=== PATIENT | female | born 1980 | race Caucasian/White ===

== ENCOUNTER 2017-02-24 16:17 | Emergency (ER) | payer MEDICAID, OTHER ==
[2017-02-24 16:25] VITALS: BP 129/72
[2017-02-24 18:00] LABS: Hematocrit 39 % (35-47); Hemoglobin 12.9 g/dl (12.0-16.0); Mean Corpuscular HGB Conc 33 g/dl (31-36); Mean Corpuscular Hemoglobin 31 pg (27-31); Mean Corpuscular Volume 92 fL (80-97); Mean Platelet Volume 7 um3 (7.4-10.4); Red Blood Count 4.17 10^6/ul (4.0-5.4); Red Cell Distribution Width 14 % (10.5-15); White Blood Count 9.9 10^3/ul (3.5-10.8)
[2017-02-24 18:15] LABS: Albumin 3.6 g/dL (3.2-5.2); BUN/Creatinine Ratio 24.1 (8-20); C Reactive Protein 20.79 mg/L (< 5.00); Calcium 9.1 mg/dL (8.6-10.3); EGFR African American 151.3 (>60); EGFR Non-African American 117.6 (>60); Globulin 3.5 g/dL (2-4); Potassium 3.3 mmol/L (3.5-5.0); Total Bilirubin 0.3 mg/dL (0.2-1.0); Total Protein 7.1 g/dL (6.4-8.9)
[2017-02-24 19:08] LABS: Erythrocyte Sed Rate 65 mm/Hr (0-14)
[2017-02-24] MEDS ORDERED: Ketorolac INJ* 30 MG/ML 1 ML VIAL IV ONE (19:53)
[2017-02-24] MEDS ORDERED: Ketorolac INJ* 30 MG/ML 1 ML VIAL ONE (19:54)
--- NOTE | 2017-02-24 21:58 | ED ---
Joe Rios Salem, scribed for Krishan Lehman MD on 02/24/17 at 1745 . Upper Extremity Pain - HPI Summary HPI Summary: Patient is 36 y/o female who presents to the ED with numbness and pain in her right hand since 1 week ago. She states her hand feels cold and like electricity is going through it. She reports edema in the RLE and difficulty walking on it. She also reports calf and ankle pain in the RLE. She denies neck pain and states that pain is not worse in the morning. Pt states that her whole right arm felt numb a few days ago, but that its only her hand now. She had an X-ray and US of her arm and leg taken 2 days ago. - History of Current Complaint Chief Complaint: EDExtremityLower Stated Complaint: RIGHT LEG SWELLING,ARM&HAND NUMBNESS Time Seen by Provider: 02/24/17 16:56 Hx Obtained From: Patient Hx Last Menstrual Period: DEPO Mechanism Of Injury: Unknown Onset/Duration: Started Days Ago, Still Present Timing: Constant Severity Initially: Moderate Severity Currently: Moderate Pain Location: Hand - Right. 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 Positive: Edema - RLE and RUE. , Other - Numbness and pain of right hand. Cold hand with sensation of "electricity." Calf and ankle pain in the RLE. All Other Systems Reviewed And Are Negative: Yes Physical Exam Triage Information Reviewed: Yes Vital Signs On Initial Exam: Initial Vitals Temp Pulse Resp BP Pulse Ox 99.1 F 102 16 129/72 100 02/24/17 16:20 02/24/17 16:20 02/24/17 16:20 02/24/17 16:20 02/24/17 16:20 Vital Signs Reviewed: Yes Appearance: Positive: Well-Appearing, Pain Distress Skin: Positive: Warm, Skin Color Reflects Adequate Perfusion, Dry Head/Face: Positive: Normal Head/Face Inspection Eyes: Positive: Normal Neck: Positive: Supple, Nontender Respiratory/Lung Sounds: Positive: Clear to Auscultation, Breath Sounds Present Cardiovascular: Positive: RRR, Other - Good capillary refill and good pulses. Abdomen Description: Positive: Nontender, Soft Bowel Sounds: Positive: Present Musculoskeletal: Positive: Other - Seems to be weak in hands, radial ulnar nerve distribution. Negative Tinels sign and Phalen's sign. Neurological: Positive: Normal Psychiatric: Positive: Normal, Affect/Mood Appropriate - Kincaid Coma Scale Coma Scale Total: 15 Diagnostics - Vital Signs Vital Signs Temp Pulse Resp BP Pulse Ox 02/24/17 16:20 99.1 F 102 16 129/72 100 - Laboratory Lab Results: Lab Results 02/24/17 02/24/17 Range/Units 17:50 17:50 WBC 9.9 (3.5-10.8) 10^3/ul RBC 4.17 (4.0-5.4) 10^6/ul Hgb 12.9 (12.0-16.0) g/dl Hct 39 (35-47) % MCV 92 (80-97) fL MCH 31 (27-31) pg MCHC 33 (31-36) g/dl RDW 14 (10.5-15) % Plt Count 401 (150-450) 10^3/ul MPV 7 L (7.4-10.4) um3 Neut % (Auto) 70.1 (38-83) % Lymph % (Auto) 19.9 L (25-47) % Saline % (Auto) 8.0 (1-9) % Eos % (Auto) 1.3 (0-6) % Baso % (Auto) 0.7 (0-2) % Absolute Neuts (auto) 7.0 (1.5-7.7) 10^3/ul Absolute Lymphs (auto) 2.0 (1.0-4.8) 10^3/ul Absolute Monos (auto) 0.8 (0-0.8) 10^3/ul Absolute Eos (auto) 0.1 (0-0.6) 10^3/ul Absolute Basos (auto) 0.1 (0-0.2) 10^3/ul Absolute Nucleated RBC 0 10^3/ul Nucleated RBC % 0 ESR 65 H (0-14) mm/Hr Sodium 139 (133-145) mmol/L Potassium 3.3 L (3.5-5.0) mmol/L Chloride 106 (101-111) mmol/L Carbon Dioxide 24 (22-32) mmol/L Anion Gap 9 (2-11) mmol/L BUN 14 (6-24) mg/dL Creatinine 0.58 (0.51-0.95) mg/dL Est GFR ( Amer) 151.3 (>60) Est GFR (Non-Af Amer) 117.6 (>60) BUN/Creatinine Ratio 24.1 H (8-20) Glucose 84 (70-100) mg/dL Calcium 9.1 (8.6-10.3) mg/dL Total Bilirubin 0.30 (0.2-1.0) mg/dL AST 17 (13-39) U/L ALT 19 (7-52) U/L Alkaline Phosphatase 55 (34-104) U/L C-Reactive Protein 20.79 H (< 5.00) mg/L Total Protein 7.1 (6.4-8.9) g/dL Albumin 3.6 (3.2-5.2) g/dL Globulin 3.5 (2-4) g/dL Albumin/Globulin Ratio 1.0 (1-3) Result Diagrams: 02/24/17 17:50 02/24/17 17:50 Lab Statement: Any lab studies that have been ordered have been reviewed, and results considered in the medical decision making process. Re-Evaluation - Re-Evaluation First Eval Re-Evaluation Time: 19:41 Comment: Informed pt of plan. Course/Dx - Course Course Of Treatment: Ms. Whittaker's right hand and posterior right thigh have been hurting her for a couple weeks gradually worsening. She has been to [facility] twice and they didd U/S of her arm and leg to R/U DVT, plain films to R/U bony injury and labs with unknown result at this time. She was prescribed Vicodin but hasn't filled the script and hasn't purchased any OTC pain meds either. Her exam is inconsistent but clearly something is going on. Her inflammatory markers are elevated and I have sent an RAVINDER and Tick PCR's and will prescribe an anti-inflammatory which may be easier for her to get with her Medicaid. Dr. Miller has agreed to follow her and likely get an MRI. - Diagnoses Provider Diagnoses: Hand pain - Physician Notifications Discussed Care Of Patient With: Dr. Miller (neurology) @ 1934. Will give pt referral to Dr. Miller. Discharge - Discharge Plan Condition: Stable Disposition: HOME Prescriptions: Naproxen TAB* [Naprosyn 375 mg TAB*] 375 mg PO Q8H #30 tab Referrals: Abdon Miller MD [Medical Doctor] - Additional Instructions: Follow up with Dr. Miller (neurology). The documentation as recorded by the Joe garcia Salem accurately reflects the service I personally performed and the decisions made by me, Krishan Lehman MD.
[2017-02-26 17:16] LABS: B garinii/B afzelii PCR Negative (Negative); B mayonii PCR Negative (Negative)
[2017-02-26 21:32] LABS: B. miyamotoi PCR, B Negative (Negative); Babesia divergens/MO-1 Negative (Negative); Babesia ducani Negative (Negative); Ehrlichia ewingii/canis Negative (Negative)
== END 2017-02-24 20:37 | disposition home or self-care (01) ==
LOC: ED 16:17
DX: M79.641 Pain in right hand (principal); R53.1 Weakness; R60.0 Localized edema; F17.210 Nicotine dependence, cigarettes, uncomplicated
CPT/HCPCS: 36415; 80053; 85025; 85652; 86038; 86140; 86703; 87476; 87798; 99282; J1885

== ENCOUNTER 2017-10-29 20:26 | Emergency (ER) | payer OTHER ==
--- NOTE | 2017-10-29 20:31 | UC ---
Throat Pain/Nasal Darrell HPI - HPI Summary HPI Summary: 37 year old female presents with complains of sinus congestion and sore throat. - History of Current Complaint Stated Complaint: SINUS/COLD Time Seen by Provider: 10/29/17 20:31 Hx Obtained From: Patient Hx Last Menstrual Period: DEPO Onset/Duration: Sudden Onset Severity: Moderate Pain Scale Used: 0-10 Numeric - 7 Cough: Nonproductive Associated Signs & Symptoms: Positive: Negative Related History: Seasonal Allergies - Allergies/Home Medications Allergies/Adverse Reactions: Allergies Allergy/AdvReac Type Severity Reaction Status Date / Time No Known Allergies Allergy Verified 10/29/17 20:47 Home Medications: Home Medications Acetaminophen TAB* [Tylenol TAB*] 650 mg PO Q4H PRN 10/29/17 [History Confirmed 10/29/17] PMH/Surg Hx/FS Hx/Imm Hx Previously Healthy: Yes - Surgical History Surgical History: Yes Surgery Procedure, Year, and Place: x 2 - Family History Known Family History: Positive: Hypertension - Social History Alcohol Use: None Substance Use Type: None Smoking Status (MU): Light Every Day Tobacco Smoker Type: Cigarettes Amount Used/How Often: 1/2 pack dialy Length of Time of Smoking/Using Tobacco: 20 YRS Have You Smoked in the Last Year: Yes Review of Systems Constitutional: Negative Skin: Negative Eyes: Negative ENT: Sore Throat, Nasal Discharge, Sinus Congestion, Sinus Pain/Tenderness Respiratory: Negative Cardiovascular: Negative Gastrointestinal: Negative Genitourinary: Negative Motor: Negative Neurovascular: Negative Musculoskeletal: Negative Neurological: Headache Psychological: Negative All Other Systems Reviewed And Are Negative: Yes Physical Exam Triage Information Reviewed: Yes Vital Signs Reviewed: Yes Eye Exam: Normal ENT: Positive: Pharyngeal erythema, Nasal congestion, Nasal drainage, Sinus tenderness Dental Exam: Normal Neck exam: Normal Neck: Positive: 1 Respiratory Exam: Normal Cardiovascular Exam: Normal Abdominal Exam: Normal Musculoskeletal Exam: Normal Neurological Exam: Normal Psychological Exam: Normal Skin Exam: Normal Throat Pain/Nasal Course/Dx - Differential Dx/Diagnosis Provider Diagnoses: sinusitis. cough. sore throat Discharge - Discharge Plan Condition: Stable Disposition: HOME Prescriptions: Amoxicillin/Clavulanate TAB* [Augmentin TAB 875*] 875 mg PO BID #20 tab Fluconazole [Diflucan 150 MG (NF)] 150 mg PO ONCE #2 tab LoraTADine TAB(NF) [Claritin 10 MG TAB(NF)] 10 mg PO DAILY #30 tab Magic M W2 Ángel/Maal/Nyst/Lido* 5 ml SWISH SPIT QID PRN #120 ml PRN Reason: Sore Throat Methylprednisolone [Medrol Dosepak 4 MG*] 4 mg PO .SEE ANUM INSTRUCTION #21 tab Patient Education Materials: Sinusitis (ED) Referrals: No Primary Care Phys,NOPCP [Primary Care Provider] -
[2017-10-29 20:47] VITALS: BP 140/115
[2017-10-29] MEDS ORDERED: Amoxicillin/Clavulanate TAB* 875 MG PO ONE (21:05)
[2017-10-29] MEDS ORDERED: predniSONE TAB* 20 MG PO ONE (21:06)
[2017-10-29] MEDS ORDERED: Lidocaine 2% VISCOUS* 15 ML UDC PO ONE (21:09)
== END 2017-10-29 21:25 | disposition home or self-care (01) ==
LOC: UCCORT 20:26
DX: J32.9 Chronic sinusitis, unspecified (principal); R05 Cough; J02.9 Acute pharyngitis, unspecified; Z72.0 Tobacco use
CPT/HCPCS: 99212; A9270-GY; G0463; J7512

== ENCOUNTER 2019-03-05 16:21 | Emergency (ER) | payer OTHER ==
[2019-03-05 16:36] VITALS: BP 117/63
--- NOTE | 2019-03-05 16:55 | UC ---
Headache HPI - HPI Summary HPI Summary: 38 year old female presents with onset of migraine headache, photophobia, nausea , and body aches this morning. States she started to feel a little better as the morning continued but then after lunch began feeling poorly again. States the headache and nausea are typical of her migraines in the past however the body aches are new. Associated with feeling "hot and cold" but no known fever. Denies visual disturbances, dizziness, ear pain, nasal congestion, runny nose, sore throat, cough, chest pain, shortness of breath, vomiting, diarrhea, back or flank pain, dysuria, frequency, urgency, or hematuria. - History Of Current Complaint Chief Complaint: UCHeadache Stated Complaint: MIGRAINE, NAUSEA Time Seen by Provider: 03/05/19 16:52 Hx Obtained From: Patient Hx Last Menstrual Period: 02/23/19 -one day of bleeding Pain Intensity: 7 - Allergies/Home Medications Allergies/Adverse Reactions: Allergies Allergy/AdvReac Type Severity Reaction Status Date / Time avoids stimulants Allergy hx of abuse Uncoded 03/05/19 16:37 Home Medications: Home Medications Ibuprofen TAB* [Motrin TAB* 600 MG] 600 mg PO ONCE PRN 03/05/19 [History Confirmed 03/05/19] Iud 1 unit IU SEE INSTRUCTIONS 03/05/19 [History Confirmed 03/05/19] PMH/Surg Hx/FS Hx/Imm Hx Neurological History: Migraine - Surgical History Surgical History: Yes Surgery Procedure, Year, and Place: x 2 - Family History Known Family History: Positive: Hypertension - Social History Occupation: Employed Full-time Lives: With Family Alcohol Use: None 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 Negative: Fever Skin: Negative: Rash Eyes: Positive: Photophobia. Negative: Blurred Vision, Diplopia ENT: Negative: Sore Throat, Ear Ache, Nasal Discharge, Sinus Congestion, Sinus Pain/Tenderness, Other Respiratory: Negative: Shortness Of Breath, Cough Cardiovascular: Negative: Palpitations, Chest Pain Gastrointestinal: Positive: Abdominal Pain - cramping, Nausea. Negative: Vomiting, Diarrhea Genitourinary: Negative: Dysuria, Hematuria, Frequency, Urgency Musculoskeletal: Positive: Myalgia Neurological: Positive: Headache. Negative: Weakness, Paresthesia, Numbness Is Patient Immunocompromised?: No Physical Exam - Summary Physical Exam Summary: GENERAL APPEARANCE: Well developed, well nourished, alert and cooperative, and appears to be in no acute distress. EYES: Conjunctiva clear. No drainage. PERRL, EOM intact. Vision is grossly intact. EARS: External auditory canals and tympanic membranes clear, hearing grossly intact. NOSE: No nasal discharge. THROAT: Pharynx normal. No tonsilar inflammation, swelling, exudate, or lesions. Uvula midline. Oral cavity normal. Teeth and gingiva in good general condition. NECK: Neck supple, non-tender without lymphadenopathy. CARDIAC: Normal S1 and S2. No S3, S4 or murmurs. Rhythm is regular. There is no peripheral edema, cyanosis or pallor. Extremities are warm and well perfused. Capillary refill is less than 2 seconds. Peripheral pulses intact. LUNGS: Clear to auscultation without rales, rhonchi, wheezing or diminished breath sounds. ABDOMEN: Positive bowel sounds. Soft, nondistended. Generalized abdominal tenderness without guarding or rebound. No masses or hepatosplenomegally. MUSKULOSKELETAL: ROM intact to all extremities. No joint erythema or tenderness. Normal muscular development. Normal gait. NEUROLOGICAL: CN II-XII intact. Strength and sensation symmetric and intact throughout. Cerebellar testing normal. SKIN: Skin normal color, texture and turgor with no lesions or eruptions. Triage Information Reviewed: Yes Vital Signs: Initial Vital Signs Temp 97.9 F 03/05/19 16:28 Pulse 99 03/05/19 16:28 Resp 20 03/05/19 16:28 BP 117/63 03/05/19 16:28 Pulse Ox 100 03/05/19 16:28 Vital Signs Reviewed: Yes Re-Evaluation - Re-Evaluation First Eval Re-Evaluation Time: 18:10 Change: Improved Comment: Patient has received approximately 800 ml of IVF, ketoralac, and ondansetron. States she is feeling much better. States headache, body aches, and nausea have all subsided. Headache Course/Dx - Course Course Of Treatment: 38 year old female presents with onset of migraine headache, photophobia, nausea , and body aches this morning. States she started to feel a little better as the morning continued but then after lunch began feeling poorly again. States the headache and nausea are typical of her migraines in the past however the body aches are new. Associated with feeling "hot and cold" but no known fever. Denies visual disturbances, dizziness, ear pain, nasal congestion, runny nose, sore throat, cough, chest pain, shortness of breath, vomiting, diarrhea, back or flank pain, dysuria, frequency, urgency, or hematuria. Afebrile. Vital signs stable. Exam revealed mild generalized abdominal tenderness without guarding or rebound and was otherwise unremarkable. Patient was given 1 L of normal saline, ketorolac 15 mg IV, and ondansetron 4 mg IV with full resolution in her symptoms. Suspect migraine headache versus viral syndrome. She was discharged home with 2 doses of ondansetron 4 mg by mouth every 8 hours as needed for nausea or vomiting, recommended continued use of [id number] anti-inflammatories as needed for headache and body aches, as well as pushing fluids. She is to follow-up with her primary care provider in 3-5 days for recheck of symptoms. Anticipatory guidance and warning symptoms were reviewed with the patient. Verbalizes understanding and agrees with plan of care. - Differential Dx/Diagnosis Differential Diagnosis/HQI/PQRI: Migraine, Viral Syndrome Provider Diagnosis: Acute headache, Nausea, Myalgia Discharge - Sign-Out/Discharge Documenting (check all that apply): Patient Departure All imaging exams completed and their final reports reviewed: No Studies - Discharge Plan Condition: Stable Disposition: HOME Prescriptions: Ondansetron [Ondansetron Odt] 4 mg PO Q8HR PRN #6 tab.rapdis PRN Reason: Nausea/Vomiting Patient Education Materials: Acute Headache (ED), Acute Nausea and Vomiting (ED ) Referrals: No Primary Care Phys,NOPCP [Primary Care Provider] - Additional Instructions: You were given an anti-inflammatory pain medication called ketoralac (Toradol) in the clinic today around 5:30 pm. You should avoid taking any further anti- inflammatory medications such as ibuprofen (Advil, Motrin), naproxen (Aleve), or aspirin for at least 8 hours after receiving the ketoralac. You may use acetaminophen (Tylenol) according to directions if needed. After 8 hours you may use ibuprofen or naproxen according to directions as needed for pain. Take ondansetron (Zofran) 4 mg 1 tablet every 8 hours as needed for nausea of vomiting. You received a dose in the clinic around 5:30 pm. Be sure to stay well hydrated. Follow up with your primary care provider in 3-5 days for recheck of your symptoms. Seek immediate medical attention in the emergency room if you have a severe headache that is not managed with the pain medication, weakness or dizziness, confusion, you are difficult to arouse, have chest pain, shortness of breath, severe abdominal pain, persistent vomiting, or any worsening of symptoms. - Billing Disposition and Condition Condition: STABLE Disposition: Home
[2019-03-05] MEDS ORDERED: Ondansetron INJ* 2 MG/ML VIAL IV ONE (17:01)
[2019-03-05] MEDS ORDERED: Ketorolac INJ* 30 MG/ML 1 ML VIAL IV PUSH ONE (17:01)
[2019-03-05] MEDS ORDERED: NS 0.9% 1000 ML** 1,000 ML IV ONE (17:01)
[2019-03-05] MEDS ORDERED: Ondansetron ODT TAB* 4 MG PO ONE (18:16)
== END 2019-03-05 18:36 | disposition home or self-care (01) ==
LOC: UCCORT 16:21
DX: G44.89 Other headache syndrome (principal); M79.10 Myalgia, unspecified site; R11.0 Nausea; H53.143 Visual discomfort, bilateral; F17.210 Nicotine dependence, cigarettes, uncomplicated; Z88.8 Allergy status to other drugs, medicaments and biological substances
CPT/HCPCS: 96361; 96374; 96375; 96376; 99212; A9270-GY; G0463; J1885; J2405

== ENCOUNTER 2019-05-11 07:29 | Emergency (ER) | payer OTHER ==
[2019-05-11 07:44] VITALS: BP 94/65
[2019-05-11] MEDS ORDERED: Ketorolac INJ* 60 MG/2 ML VIAL IM ONE (08:12)
[2019-05-11] MEDS ORDERED: Ondansetron ODT TAB* 4 MG PO ONE (08:13)
--- NOTE | 2019-05-11 08:24 | UC ---
Headache HPI - HPI Summary HPI Summary: severe headache x 1 day pain is severe 8 out of 10 , mostly on the left side of her head pain woke her up this morning worse with light/ nose , nothing is making it better + nausea and vomiting , no abdominal pain , no fever, no chills , no cold symptoms - History Of Current Complaint Chief Complaint: UCHeadache Stated Complaint: EUBANKS,NAUSEA Time Seen by Provider: 05/11/19 08:08 Hx Obtained From: Patient Hx Last Menstrual Period: Mirena IUD ?: No Onset/Duration: Gradual Onset, Lasting Days - 1, Still Present Onset Of Symptoms: Sudden Initially Headache Was: Severe Currently Pain Is: Severe Pain Intensity: 8 Timing: Constant Character: Throbbing Aggravating Factor(s): Bright Lights Allevating Factor(s): Nothing Associated Signs And Symptoms: Positive: Nausea, Vomiting, Visual Changes. Negative: Dizziness, Seizure, Sinus Pressure, Fever, Neck Pain, Neck Stiffness, Decreased LOC - Allergies/Home Medications Allergies/Adverse Reactions: Allergies Allergy/AdvReac Type Severity Reaction Status Date / Time avoids stimulants Allergy hx of abuse Uncoded 05/11/19 07:38 Home Medications: Home Medications Bacillus Coagulans [Ra Probiotic Gummies] 1 chw PO DAILY 05/11/19 [History Confirmed 05/11/19] Cyclobenzaprine TAB* [Flexeril 10 MG TAB*] 10 mg PO TID PRN 05/11/19 [History Confirmed 05/11/19] Levonorgestrel (Iud) [Mirena IUD] 20 mcg IU ONCE 05/11/19 [History Confirmed ] LoraTADine TAB(NF) [Claritin 10 MG TAB(NF)] 10 mg PO BEDTIME 05/11/19 [History Confirmed 05/11/19] PMH/Surg Hx/FS Hx/Imm Hx - Additional Past Medical History Additional PMH: Allergies, Chronic Neck Pain, Hernias: Hiatal and Left INguinal, History of Stimulant Abuse (last 02/2018) Neurological History: Migraine - Surgical History Surgical History: Yes Surgery Procedure, Year, and Place: C-Sections, 2013 2007, [place] - Family History Known Family History: Positive: Hypertension - Social History Alcohol Use: None Substance Use Type: Marijuana Substance Use Comment - Amount & Last Used: Daily & 05/10/19 Smoking Status (MU): Heavy Every Day Tobacco Smoker Type: Cigarettes Amount Used/How Often: 1/2 PPD Length of Time of Smoking/Using Tobacco: Since Age 15 Have You Smoked in the Last Year: Yes Review of Systems All Other Systems Reviewed And Are Negative: Yes Constitutional: Positive: Negative Skin: Positive: Negative Eyes: Positive: Negative ENT: Positive: Negative Respiratory: Positive: Negative Cardiovascular: Positive: Negative Neurological: Positive: Headache Is Patient Immunocompromised?: No Physical Exam Triage Information Reviewed: Yes Appearance: Pain Distress, Thin Vital Signs: Initial Vital Signs Temp 97.2 F 05/11/19 07:35 Pulse 53 05/11/19 07:35 Resp 20 05/11/19 07:35 BP 94/65 05/11/19 07:35 Pulse Ox 100 05/11/19 07:35 Vital Signs Reviewed: Yes Eye Exam: Normal Eyes: Positive: Conjunctiva Clear ENT: Positive: Normal ENT inspection, Hearing grossly normal, Pharynx normal Neck exam: Normal Neck: Positive: Supple, Nontender, No Lymphadenopathy Respiratory: Positive: Chest non-tender, Lungs clear, Normal breath sounds Cardiovascular Exam: Normal Cardiovascular: Positive: RRR, No Murmur, Pulses Normal Skin Exam: Normal Headache Course/Dx - Differential Dx/Diagnosis Provider Diagnosis: Headache Discharge - Sign-Out/Discharge Documenting (check all that apply): Patient Departure All imaging exams completed and their final reports reviewed: No Studies - Discharge Plan Condition: Stable Disposition: HOME Prescriptions: Ketorolac TAB * [Toradol TAB *] 10 mg PO Q6H PRN #12 tab PRN Reason: Pain Ondansetron ODT TAB* [Zofran 4 MG Odt TAB*] 8 mg PO Q8H PRN #9 tab.odt PRN Reason: Nausea/Vomiting Patient Education Materials: Acute Headache (ED) Referrals: No Primary Care Phys,NOPCP [Primary Care Provider] - 5 Days - Billing Disposition and Condition Condition: STABLE Disposition: Home
== END 2019-05-11 09:01 | disposition home or self-care (01) ==
LOC: UCCORT 07:29
DX: R51 Headache (principal); G89.29 Other chronic pain; M54.2 Cervicalgia; F17.210 Nicotine dependence, cigarettes, uncomplicated
CPT/HCPCS: 96372; 99212; A9270-GY; G0463; J1885

== ENCOUNTER 2019-09-20 08:05 | Emergency (ER) | payer OTHER ==
[2019-09-20 08:24] VITALS: BP 115/64
[2019-09-20] MEDS ORDERED: Ketorolac *IM* INJ* 60 MG/2 ML VIAL IM ONE (08:32)
--- NOTE | 2019-09-20 09:24 | UC ---
Headache HPI - HPI Summary HPI Summary: headache x 1 day pain is on the right side and behind the right eye pain is 7 out of 10 constant worse with noise and light, better with ibuprofen no n/v , , c/o sinus pressure, no cough, no fever, no cold symptoms - History Of Current Complaint Chief Complaint: UCGeneralIllness Stated Complaint: EUBANKS,EAR PAIN,NECK PAIN Time Seen by Provider: 09/20/19 08:23 Hx Obtained From: Patient Hx Last Menstrual Period: iud ?: No Onset/Duration: Gradual Onset, Lasting Days - 1, Still Present Onset Of Symptoms: Gradual Initially Headache Was: Severe Currently Pain Is: Severe Pain Intensity: 8 Timing: Constant Character: Throbbing Location of Headache: Frontal - right side Aggravating Factor(s): Exertion, Bright Lights Allevating Factor(s): Rest, Medication Associated Signs And Symptoms: Negative: Dizziness, Seizure, Nausea, Vomiting, Sinus Pressure, Fever, Neck Pain, Neck Stiffness - Allergies/Home Medications Allergies/Adverse Reactions: Allergies Allergy/AdvReac Type Severity Reaction Status Date / Time avoids stimulants Allergy hx of abuse Uncoded 09/20/19 08:21 PMH/Surg Hx/FS Hx/Imm Hx - Additional Past Medical History Additional PMH: Allergies, Chronic Neck Pain, Hernias: Hiatal and Left INguinal, History of Stimulant Abuse (last 02/2018) - Surgical History Surgical History: Yes Surgery Procedure, Year, and Place: C-Sections, 2013 2007, [place] - Family History Known Family History: Positive: Hypertension - Social History Alcohol Use: None Substance Use Type: Marijuana Substance Use Comment - Amount & Last Used: daily Smoking Status (MU): Heavy Every Day Tobacco Smoker Type: Cigarettes Amount Used/How Often: 1/2 PPD Length of Time of Smoking/Using Tobacco: Since Age 15 Have You Smoked in the Last Year: Yes Review of Systems All Other Systems Reviewed And Are Negative: Yes Constitutional: Positive: Negative Skin: Positive: Negative Eyes: Positive: Negative ENT: Positive: Negative Neurological: Positive: Headache Is Patient Immunocompromised?: No Physical Exam Triage Information Reviewed: Yes Appearance: Well-Nourished, Pain Distress Vital Signs: Initial Vital Signs Temp 98.4 F 09/20/19 08:19 Pulse 77 09/20/19 08:19 Resp 15 09/20/19 08:19 BP 115/64 09/20/19 08:19 Pulse Ox 100 09/20/19 08:19 Vital Signs Reviewed: Yes Eye Exam: Normal Eyes: Positive: Conjunctiva Clear ENT: Positive: Normal ENT inspection, Hearing grossly normal, Pharynx normal Neck: Positive: Supple, Nontender, No Lymphadenopathy Respiratory: Positive: Chest non-tender, Lungs clear, Normal breath sounds, No respiratory distress Cardiovascular: Positive: RRR, No Murmur, Pulses Normal Abdominal Exam: Normal Skin Exam: Normal UC Physical Exam Vital Signs On Initial Exam: Initial Vitals Temp Pulse Resp BP Pulse Ox 98.4 F 77 15 115/64 100 09/20/19 08:19 09/20/19 08:19 09/20/19 08:19 09/20/19 08:19 09/20/19 08:19 - Neurological Exam Neurological: Normal, Sensory/Motor Intact, CN Intact II-III, Normal Gait, Speech Normal Headache Course/Dx - Differential Dx/Diagnosis Provider Diagnosis: Headache Discharge ED - Sign-Out/Discharge Documenting (check all that apply): Patient Departure All imaging exams completed and their final reports reviewed: No Studies - Discharge Plan Condition: Stable Disposition: HOME Prescriptions: Ketorolac TAB * [Toradol TAB *] 10 mg PO Q6H PRN #20 tab PRN Reason: Headache Patient Education Materials: Acute Headache (DC) Referrals: Dasha Bryson [Primary Care Provider] - If Needed - Billing Disposition and Condition Condition: STABLE Disposition: Home
== END 2019-09-20 09:25 | disposition home or self-care (01) ==
LOC: UCCORT 08:05
DX: R51 Headache (principal); M54.2 Cervicalgia; H92.09 Otalgia, unspecified ear; F17.210 Nicotine dependence, cigarettes, uncomplicated; Z88.8 Allergy status to other drugs, medicaments and biological substances
CPT/HCPCS: 96372; 99212; G0463; J1885